=== PATIENT | male | born 1985 | race Caucasian/White ===

== ENCOUNTER 2024-11-15 22:47 | Emergency (ER) | payer OTHER ==
[~2024-11-15] VITALS: Ht 172.7 cm; Wt 81.0 kg
[2024-11-16 00:07] VITALS: O2SAT 100
[2024-11-16 00:08] VITALS: O2SAT 98
[2024-11-16] MEDS: PROPOFOL 200MG/20ML VIAL IV ONE (00:31)
[2024-11-16 01:07] VITALS: BP 140/96; PULSE 74; RESP 14; TEMP 36.6; O2SAT 100
== END 2024-11-16 01:39 | disposition home or self-care (01) ==
LOC: ER 22:56
DX: S43.004A Unspecified dislocation of right shoulder joint, initial encounter (principal); F19.90 Other psychoactive substance use, unspecified, uncomplicated; Z88.0 Allergy status to penicillin; X58.XXXA Exposure to other specified factors, initial encounter; Y93.89 Activity, other specified; Y92.89 Other specified places as the place of occurrence of the external cause; Y99.8 Other external cause status
CPT/HCPCS: 73030 ×2; 23650; 99152; 99291; J2704; Z7610